=== PATIENT | female | born 1990 | race Hispanic/Latino ===

== ENCOUNTER 2018-09-06 07:31 | Observation (INO) | payer BC ==
[2018-09-06] MEDS ORDERED: CEFTRIAXONE/SWI 1gm 1 GM/10 ML SYR ONE (08:23)
[2018-09-06] MEDS ORDERED: NA CHLORIDE 0.9% 1,000 ML ONE ×4 (08:23→15:08)
[2018-09-06 08:29] LABS: Urine Blood 2+ (NEG); Urine Glucose NEGATIVE (NEG); Urine Protein NEGATIVE (NEG); Urine Specific Gravity 1.015 (1.005-1.030)
[2018-09-06 09:10] LABS: Urine Bacteria <20 /HPF (<20); Urine RBC <5 /HPF (NONE SEEN); Urine Yeast PRESENT (NONE SEEN)
[2018-09-06 09:10] LABS: BUN Blood Urea Nitrogen 9 mg/dL (7-18); Bicarbonate 27 mmol/L (21-32); Glucose Level 97 mg/dL (74-106); Potassium 3.7 mmol/L (3.5-5.1); Sodium Level 140 mmol/L (136-145)
[2018-09-06 09:11] LABS: Urine Culture Reflex Order REFLEXED
[2018-09-06 09:19] LABS: Absolute Lymphocytes (CBC) 0.6 K/uL (0.7-4.9); Absolute Monocytes 0.5 K/uL (0.1-1.3); Absolute Neutrophil 4.1 K/uL (1.8-8.0); Basophils % 0.5 % (0-1.3); Eosinophils % 0.1 % (0-4.4); Hematocrit 44.3 % (36.0-45.0); Lymphocytes % 11.9 % (15.3-44.8); MPV 9.2 fL (7.6-11.3); Monocytes % 9.9 % (3.3-12.3); RBC Red Blood Cell Count 4.95 M/uL (3.86-4.86)
--- NOTE | 2018-09-06 10:13 | RAD REPORT ---
EXAM DESCRIPTION: US - Renal Ultrasound-Limited - 09/06/2018 9:14 am CLINICAL HISTORY: Right flank pain COMPARISON: September 01 CAT scan FINDINGS: The right kidney measures 11 centimeters. Echotexture is borderline increased No gross abnormality of the bladder IMPRESSION: Borderline increased renal echotexture. This may be normal for the patient or indicate p arenchymal disease
--- NOTE | 2018-09-06 10:52 | EDPHYS ---
Physician Documentation [facility] Name: Bossman Cortez Age: 28 yrs Sex: Female : 1990 Arrival Date: 09/06/2018 Time: 07:34 Bed 7 Private MD: ED Physician Jeffry Lopez HPI: 09/06 12:17 This 28 yrs old Female presents to ER via Ambulatory with complaints of Kidney gs Problem. 12:17 The patient complains of pain in the left low back. The pain radiates to the right gs lower quadrant. Onset: The symptoms/episode began/occurred 5 day(s) ago. Associated signs and symptoms: Pertinent positives: vomiting, Pertinent negatives:. Severity of pain: At its worst the pain was severe in the emergency department the pain is unchanged. The patient has experienced similar episodes in the past, a few times. The patient has been recently seen by a physician: the patient's primary care provider. 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 - Social history:: Smoking status: Patient/guardian denies using tobacco. - Ebola Screening: : No symptoms or risks identified at this time. ROS: 12:17 All other systems are negative. gs Exam: 12:17 Head/Face: Normocephalic, atraumatic. Eyes: Pupils equal round and reactive to light, gs extra-ocular motions intact. Lids and lashes normal. Conjunctiva and sclera are non-icteric and not injected. Cornea within normal limits. Periorbital areas with no swelling, redness, or edema. ENT: Nares patent. No nasal discharge, no septal abnormalities noted. Tympanic membranes are normal and external auditory canals are clear. Oropharynx with no redness, swelling, or masses, exudates, or evidence of obstruction, uvula midline. Mucous membranes moist. Neck: Trachea midline, no thyromegaly or masses palpated, and no cervical lymphadenopathy. Supple, full range of motion without nuchal rigidity, or vertebral point tenderness. No Meningismus. Chest/axilla: Normal chest wall appearance and motion. Nontender with no deformity. No lesions are appreciated. Cardiovascular: Regular rate and rhythm with a normal S1 and S2. No gallops, murmurs, or rubs. Normal PMI, no JVD. No pulse deficits. Respiratory: Lungs have equal breath sounds bilaterally, clear to auscultation and percussion. No rales, rhonchi or wheezes noted. No increased work of breathing, no retractions or nasal flaring. Skin: Warm, dry with normal turgor. Normal color with no rashes, no lesions, and no evidence of cellulitis. MS/ Extremity: Pulses equal, no cyanosis. Neurovascular intact. Full, normal range of motion. Neuro: Awake and alert, GCS 15, oriented to person, place, time, and situation. Cranial nerves II-XII grossly intact. Motor strength 5/5 in all extremities. Sensory grossly intact. Cerebellar exam normal. Normal gait. 12:17 Constitutional: The patient appears alert, awake. 12:17 Abdomen/GI: Palpation: moderate abdominal tenderness, in the right lower quadrant. 12:17 Back: CVA tenderness, that is moderate, is noted on the right. Vital Signs: 07:51 BP 127 / 88; Pulse 134; Resp 16; Temp 98.7(TE); Pulse Ox 98% on R/A; Weight 72.57 kg; hb Height 5 ft. 5 in. (165.10 cm); Pain 8/10; 09:17 BP 103 / 70; Pulse 105; Resp 16; Pulse Ox 100% ; sv 10:42 BP 117 / 84; Pulse 102; Resp 18; Pulse Ox 98% ; sv 11:09 BP 117 / 75; Pulse 116; Resp 16; Pulse Ox 99% ; sv 11:45 BP 127 / 77; Pulse 108; Resp 16; Pulse Ox 97% on R/A; sv 12:30 BP 121 / 89; Pulse 103; Resp 16; Pulse Ox 97% ; sv 13:15 BP 120 / 82; Pulse 110; Resp 16; Pulse Ox 99% on R/A; sv 14:32 Pulse 100; Resp 18; Pulse Ox 97% ; sv 15:14 BP 110 / 79; Pulse 98; Resp 16; Pulse Ox 98% ; sv 16:16 BP 127 / 82; Pulse 109; Resp 16; Temp 98.6; Pulse Ox 98% ; sv 17:01 BP 103 / 67; Pulse 93; Resp 16; Pulse Ox 98% ; sv 07:51 Body Mass Index 26.63 (72.57 kg, 165.10 cm) hb MDM: 08:05 Patient medically screened. 12:17 Differential diagnosis: nephrolithiasis, pyelonephritis, UTI. Data reviewed: vital gs signs, nurses notes. Counseling: I had a detailed discussion with the patient and/or guardian regarding: the historical points, exam findings, and any diagnostic results supporting the discharge/admit diagnosis, the need for outpatient follow up. Response to treatment: the patient's symptoms have markedly improved after treatment, and as a result, I will discharge patient. 09/06 08:03 Order name: Urine Dipstick--Ancillary (enter results) ia 09/06 08:03 Order name: Urine --Ancillary (enter results); Complete Time: 10:50 ia 09/06 08:09 Order name: CBC with Diff 09/06 08:09 Order name: Basic Metabolic Panel; Complete Time: 10:50 09/06 08:09 Order name: Urine Microscopic Only; Complete Time: 10:50 09/06 08:09 Order name: Blood Culture* 09/06 08:09 Order name: Rp Exam Limited US; Complete Time: 10:50 09/06 08:09 Order name: CBC with Automated Diff; Complete Time: 10:50 EDNJ 09/06 09:12 Order name: Urine Culture EDNJ 09/06 11:00 Order name: CT Abd/Pelvis - Without Cont; Complete Time: 12:13 09/06 12:42 Order name: TSH; Complete Time: 13:39 09/06 12:49 Order name: Urine Drug Screen; Complete Time: 13:58 09/06 15:41 Order name: Flu ph 09/06 15:41 Order name: CDIFF ph 09/06 16:24 Order name: Heart Healthy; Complete Time: 16:35 EDMS Administered Medications: 08:54 Drug: NS 0.9% 1000 ml Route: IV; Rate: 1 bolus; Site: left antecubital; hb 09:30 Follow up: Response: No adverse reaction; IV Status: Completed infusion; IV Intake: sv 1000ml 09:15 Drug: Rocephin - (cefTRIAXone) 1 grams Route: IVPB; Infused Over: 30 mins; Site: left hb antecubital; 09:17 Follow up: Response: No adverse reaction; IV Status: Completed infusion; IV Intake: 10mlsv 11:09 Drug: NS 0.9% 1000 ml Route: IV; Rate: 1 bolus; Site: left antecubital; sv 12:00 Follow up: Response: No adverse reaction; IV Status: Completed infusion; IV Intake: sv 1000ml 12:48 Drug: NS 0.9% 1000 ml Route: IV; Rate: 1 bolus; Site: left antecubital; sv 14:00 Follow up: Response: No adverse reaction; IV Status: Completed infusion; IV Intake: sv 1000ml 14:23 Drug: TORadol - Ketorolac 15 mg Route: IVP; Site: left antecubital; sv 15:12 Follow up: Response: No adverse reaction; No change in condition sv 15:12 Drug: NS 0.9% 1000 ml Route: IV; Rate: 200 ml/hr; Site: left antecubital; sv 17:28 Follow up: Response: No adverse reaction; IV Status: Infusion continued upon admission sv Disposition: 09/06/18 14:52 Hospitalization ordered by Joanna Cope for Observation. Preliminary diagnosis are Vomiting, Dehydration. - Bed requested for Telemetry/MedSurg (observation). - Status is Observation. sv - Condition is Stable. - Problem is new. - Symptoms have improved. UTI on Admission? No Signatures: Dispatcher [employer] Seema Doss RN RN Clare Velez ms, Heather, RN RN Jeffry Lopez MD MD Corrections: (The following items were deleted from the chart) 11:00 10:51 09/06/2018 10:51 Discharged to Home. Impression: Dysuria. Condition is Stable. gs Forms are Medication Reconciliation Form, Thank You Letter, Antibiotic Education, Prescription Opioid Use. Follow up: Private Physician; When: 2 - 3 days; Reason: Re-evaluation by your physician. 12:42 12:23 09/06/2018 12:23 Discharged to Home. Impression: Nonspecific mesenteric gs lymphadenitis; Vomiting; Dehydration. Condition is Stable. Forms are Medication Reconciliation Form, Thank You Letter, Antibiotic Education, Prescription Opioid Use. Follow up: Private Physician; When: 1 - 2 days; Reason: Re-evaluation by your physician. 16:29 14:52 Hospitalization Ordered by Joanna Cope MD for Observation. Preliminary ms diagnosis is Vomiting; Dehydration. Bed requested for Telemetry/MedSurg (observation). Status is Observation. Condition is Stable. Problem is new. Symptoms have improved. UTI on Admission? No. gs 17:28 16:29 09/06/2018 14:52 Hospitalization Ordered by Joanna Cope MD for Observation. sv Preliminary diagnosis is Vomiting; Dehydration. Bed requested for Telemetry/MedSurg (observation). Status is Observation. Condition is Stable. Problem is new. Symptoms have improved. UTI on Admission? No. ms
--- NOTE | 2018-09-06 10:52 | ER ---
Nurse's Notes [facility] Name: Bossman Cortez Age: 28 yrs Sex: Female : 1990 Arrival Date: 09/06/2018 Time: 07:34 Bed 7 Private MD: Diagnosis: Vomiting;Dehydration Presentation: 09/06 07:53 Presenting complaint: Urinary frequency, burning with urination, and back pain x 1 hb week. Hx of urethral reflux and frequent UTIs, seen on Saturday by Dr. Encinas, started on Macrobid. Transition of care: patient was not received from another setting of care. Onset of symptoms was September 06, 2018. Risk Assessment: Do you want to hurt yourself or someone else? Patient reports no desire to harm self or others. Care prior to arrival: None. 07:53 Method Of Arrival: Ambulatory hb 07:53 Acuity: JHONY 3 hb 09:15 Initial Sepsis Screen: Does the patient meet any 2 criteria? HR > 90 bpm. No. Patient's sv initial sepsis screen is negative. Does the patient have a suspected source of infection? Yes: Dysuria/Frequency/Urgency/UTI. 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 - Social history:: Smoking status: Patient/guardian denies using tobacco. - Ebola Screening: : No symptoms or risks identified at this time. Screenin:44 Abuse screen: Denies threats or abuse. Denies injuries from another. Nutritional sv screening: No deficits noted. Tuberculosis screening: No symptoms or risk factors identified. Fall Risk None identified. Assessment: 09:00 General: Appears in no apparent distress. uncomfortable, well groomed, well developed, sv Behavior is calm, cooperative, appropriate for age. Pain: Complains of pain in back Pain currently is 8 out of 10 on a pain scale. Is continuous. Neuro: Level of Consciousness is awake, alert, obeys commands, Oriented to person, place, time, situation, Moves all extremities. Full function Gait is steady, Speech is normal. Respiratory: Airway is patent Respiratory effort is even, unlabored, Respiratory pattern is regular, symmetrical. : Reports burning with urination. Derm: Skin is pink, warm \T\ dry. 11:09 Reassessment: Patient appears in no apparent distress at this time. No changes from sv previously documented assessment. Patient and/or family updated on plan of care and expected duration. Pain level reassessed. Patient is alert, oriented x 3, equal unlabored respirations, skin warm/dry/pink. 12:48 Reassessment: Patient appears in no apparent distress at this time. No changes from sv previously documented assessment. Patient and/or family updated on plan of care and expected duration. Pain level reassessed. Patient is alert, oriented x 3, equal unlabored respirations, skin warm/dry/pink. 14:25 Reassessment: Patient appears in no apparent distress at this time. No changes from sv previously documented assessment. Patient and/or family updated on plan of care and expected duration. Pain level reassessed. Patient is alert, oriented x 3, equal unlabored respirations, skin warm/dry/pink. 15:12 Reassessment: Patient appears in no apparent distress at this time. Patient and/or sv family updated on plan of care and expected duration. Pain level reassessed. Patient is alert, oriented x 3, equal unlabored respirations, skin warm/dry/pink. 15:29 Reassessment: Dr Cope at the bedside. sv 16:16 Reassessment: Patient appears in no apparent distress at this time. Patient and/or sv family updated on plan of care and expected duration. Pain level reassessed. Patient is alert, oriented x 3, equal unlabored respirations, skin warm/dry/pink. 16:34 Reassessment: Attempted to call report, nurse to call back for report. sv Vital Signs: 07:51 BP 127 / 88; Pulse 134; Resp 16; Temp 98.7(TE); Pulse Ox 98% on R/A; Weight 72.57 kg; hb Height 5 ft. 5 in. (165.10 cm); Pain 8/10; 09:17 BP 103 / 70; Pulse 105; Resp 16; Pulse Ox 100% ; sv 10:42 BP 117 / 84; Pulse 102; Resp 18; Pulse Ox 98% ; sv 11:09 BP 117 / 75; Pulse 116; Resp 16; Pulse Ox 99% ; sv 11:45 BP 127 / 77; Pulse 108; Resp 16; Pulse Ox 97% on R/A; sv 12:30 BP 121 / 89; Pulse 103; Resp 16; Pulse Ox 97% ; sv 13:15 BP 120 / 82; Pulse 110; Resp 16; Pulse Ox 99% on R/A; sv 14:32 Pulse 100; Resp 18; Pulse Ox 97% ; sv 15:14 BP 110 / 79; Pulse 98; Resp 16; Pulse Ox 98% ; sv 16:16 BP 127 / 82; Pulse 109; Resp 16; Temp 98.6; Pulse Ox 98% ; sv 17:01 BP 103 / 67; Pulse 93; Resp 16; Pulse Ox 98% ; sv 07:51 Body Mass Index 26.63 (72.57 kg, 165.10 cm) hb ED Course: 07:34 Patient arrived in ED. tw3 07:40 Jeffry Lopez MD is Attending Physician. gs 07:44 Patient has correct armband on for positive identification. Bed in low position. Call sv light in reach. Door closed. Head of bed elevated. 07:45 Seema Gottlieb RN is Primary Nurse. sv 07:50 Awaiting ED provider evaluation. sv 07:55 Triage completed. hb 07:56 Arm band placed on. hb 08:45 First set of blood cultures drawn by me. Inserted saline lock: 20 gauge in left hb antecubital area, using aseptic technique. Blood collected. 09:06 Second set of blood cultures drawn by me. hb 09:12 CBC with Diff Sent. sv 09:14 Rp Exam Limited US In Process Unspecified. EDMS 09:15 Ultrasound completed. Patient tolerated well. sg3 11:[address] via wheelchair. mw3 11:16 CT completed. Patient tolerated procedure well. Patient moved back from CT. mw3 11:18 CT Abd/Pelvis - Without Cont In Process Unspecified. EDMS 14:51 Joanna Cope MD is Hospitalizing Provider. gs 16:19 Flu and/or RSV swab sent to lab. dh3 17:11 No provider procedures requiring assistance completed. Patient admitted, IV remains in sv place. intact. 18:01 Primary Nurse role handed off by Seema Gottlieb RN Administered Medications: 08:54 Drug: NS 0.9% 1000 ml Route: IV; Rate: 1 bolus; Site: left antecubital; hb 09:30 Follow up: Response: No adverse reaction; IV Status: Completed infusion; IV Intake: sv 1000ml 09:15 Drug: Rocephin - (cefTRIAXone) 1 grams Route: IVPB; Infused Over: 30 mins; Site: left hb antecubital; 09:17 Follow up: Response: No adverse reaction; IV Status: Completed infusion; IV Intake: 10mlsv 11:09 Drug: NS 0.9% 1000 ml Route: IV; Rate: 1 bolus; Site: left antecubital; sv 12:00 Follow up: Response: No adverse reaction; IV Status: Completed infusion; IV Intake: sv 1000ml 12:48 Drug: NS 0.9% 1000 ml Route: IV; Rate: 1 bolus; Site: left antecubital; sv 14:00 Follow up: Response: No adverse reaction; IV Status: Completed infusion; IV Intake: sv 1000ml 14:23 Drug: TORadol - Ketorolac 15 mg Route: IVP; Site: left antecubital; sv 15:12 Follow up: Response: No adverse reaction; No change in condition sv 15:12 Drug: NS 0.9% 1000 ml Route: IV; Rate: 200 ml/hr; Site: left antecubital; sv 17:28 Follow up: Response: No adverse reaction; IV Status: Infusion continued upon admission sv Intake: 09:17 IV: 10ml; Total: 10ml. sv 09:30 IV: 1000ml; Total: 1010ml. sv 12:00 IV: 1000ml; Total: 2010ml. sv 14:00 IV: 1000ml; Total: 3010ml. sv Outcome: 10:51 Discharge ordered by MD. gs 12:23 Discharge ordered by MD. gs 14:52 Decision to Hospitalize by Provider. gs 17:10 Admitted to Med/surg accompanied by tech, via wheelchair, room 212, with chart, Report sv called to Cari RAZA 17:10 Condition: stable 17:10 Instructed on the need for admit. 17:28 Patient left the ED. sv Signatures: [facility] Seema Gottlieb RN RN Shani Villegas RN RN elbert Zapata, Kandis tw3 Yolanda Hollingsworth 3 Jeffry Lopez MD MD gs Godinez, Sarah 3 Lida Mccray 3 Corrections: (The following items were deleted from the chart) 08:54 08:45 Inserted saline lock: 20 gauge in right antecubital area, using aseptic hb technique. Blood collected. hb 16:19 16:16 BP 127 / 82; Pulse 109bpm; Resp 16bpm; Pulse Ox 98%; sv sv
--- NOTE | 2018-09-06 11:51 | RAD REPORT ---
EXAM DESCRIPTION: CT - Abdomen Pelvis Wo Contrast - 09/06/2018 11:18 am CLINICAL HISTORY: Abdominal pain urinary frequency COMPARISON: September 01, 2018 TECHNIQUE: Computed axial tomography of the abdomen and pelvis was obtained. IV and oral contrast we re not requested. All CT scans are performed using dose optimization technique as appropriate and may include automated exposure control or mA/KV adjustment according to patient size. FINDINGS: The evaluation of solid organs, vessels and bowel is limited secondary to the lack of con trast administration. Fatty liver The Spleen, pancreas, adrenals and kidneys appear grossly normal. The appendix is normal. There is no evidence of diverticulitis. Small umbilical hernia. Cholecystectomy Multiple small mesenteric lymph nodes IMPRESSION: Multiple small mesenteric lymph nodes probably reactive. Followup CT in 3 months is dyan mmended to assess stability.
[2018-09-06 13:43] LABS: Barbiturates NEGATIVE (NEGATIVE); Benzodiazepines NEGATIVE (NEGATIVE); Cocaine NEGATIVE (NEGATIVE); METHAMPHETAM NEGATIVE (NEGATIVE); Methadone NEGATIVE (NEGATIVE); Opiates NEGATIVE (NEGATIVE); Phencyclidine NEGATIVE (NEGATIVE); THC Cannibis NEGATIVE (NEGATIVE)
[2018-09-06] MEDS ORDERED: KETOROLAC 30 MG/ML INJ ONE (14:32)
[2018-09-06] MEDS ORDERED: ACETAMINOPHEN 500 MG TAB PO PRN (16:12)
[2018-09-06] MEDS: ONDANSETRON 4 MG/2 ML VIAL IV PRN (18:24)
[2018-09-06] MEDS: NA CHLORIDE 0.9% 1,000 ML IV SCH (18:24)
[2018-09-06] MEDS: KETOROLAC 30 MG/ML INJ IV PRN (18:26)
--- NOTE | 2018-09-06 19:15 | P.HP ---
Certification for Inpatient Patient admitted to: Observation Practitioner: I am a practitioner with admitting privileges, knowledge of patient current condition, hospital course, and medical plan of care. Services: Services provided to patient in accordance with Admission requirements found in Title 42 Section 412.3 of the Code of Federal Regulations Patient History Date of Service: 09/06/18 Reason for admission: back pain ,nausea and vomiting History of Present Illness: 28 y/o woman with a history of hypertension ,recurrent UTI,urethral reflex , depression presented to the emergency room with back pain ,nasuea and vomting that started 1 week ago and pt went to her pcp who prescribed macrobid, pt didnt improve and continued to have burning with urination with back pain and went to see her pcp again on last Saturday and got prescritopn for another abx but pt didnt take it,last night pt started to have generalized body ache and fever 103 with worsening of N/V and back pain ,in ER pt was having tachycardia and decision was made to admit her for observation Allergies No Known Drug Allergies Allergy (Verified 09/06/18 18:19) Unknown No Known Allergies Allergy (Uncoded 06/15/16 18:02) Unknown Home Medications: Nifedipine [Procardia Xl] 30 mg PO DAILY 09/06/18 Quetiapine Fumarate [Seroquel] 50 mg PO DAILY 09/06/18 - Past Medical/Surgical History Has patient received pneumonia vaccine in the past: No Diabetic: No -: urethreal reflux -: hypertension -: frequent uti -: vaginal delivery 12/2015 -: tubal 03/2018 - Family History Father -: Hypertension - Social History Smoking Status: Never smoker Alcohol use: No CD- Drugs: No Caffeine use: No Place of Residence: Home Review of Systems 10-point ROS is otherwise unremarkable Physical Examination - Vital Signs Temperature: 97.8 F Blood Pressure: 109/71 Pulse: 85 Respirations: 18 Pulse Ox (%): 98 - Physical Exam General: Alert, In no apparent distress, Oriented x3 HEENT: Atraumatic, Normocephalic, PERRLA Neck: JVD not distended Respiratory: Clear to auscultation bilaterally, Normal air movement Cardiovascular: No edema, Normal pulses, Regular rate/rhythm, Normal S1 S2 Gastrointestinal: Normal bowel sounds, Soft and benign, Non-distended Musculoskeletal: No clubbing, No swelling, No erythema, No tenderness Integumentary: No rashes, No breakdown, No significant lesion Neurological: Normal speech, Normal strength at 5/5 x4 extr, Sensation intact, Cranial nerves 3-12 intact - Studies Laboratory Data (last 24 hrs) 09/06/18 08:45: Sodium 140, Potassium 3.7, BUN 9, Creatinine 0.69, Glucose 97 09/06/18 08:45: WBC 5.3, Hgb 15.2 H, Hct 44.3, Plt Count 245 Microbiology Data (last 24 hrs): 09/06/18 16:17 Nasopharnyx Influenza Type A Antigen Screen - Final 09/06/18 16:17 Nasopharnyx Influenza Type B Antigen Screen - Final Assessment and Plan - Plan nausea and vomiting with back pain and +ve cva tenderness ,UA -ve will start on IV Rocephin IVF hydration zofran advance diet as tolerated f/up stool studies to r/o cdiff since pt has hx of recent abx use HTn continue home meds of procardia 30 depression continue serequel dvt ppx - Advance Directives Does patient have a Living Will: No Does patient have a Durable POA for Healthcare: No
[2018-09-06] MEDS ORDERED: CEFTRIAXONE 1 GM/NS 50 ML 1 GM/50 ML BAG IV SCH (21:00)
[2018-09-06 21:44] LABS: Urine Appearance CLOUDY; Urine Bilirubin NEGATIVE (NEG); Urine Blood 3+ (NEG); Urine Color YELLOW; Urine Glucose NEGATIVE (NEG); Urine Protein NEGATIVE (NEG); Urine Specific Gravity <=1.005 (1.005-1.030); Urine Urobilinogen 0.2 mg/dL (0.2-1.0); Urine pH 6.5 (5.0-7.0)
[2018-09-06 21:56] LABS: Urine Microscopic Reflex ORDER UMIC
[2018-09-06 22:05] LABS: Urine RBC <5 /HPF (NONE SEEN)
[2018-09-06 22:06] LABS: Urine Bacteria 20-50 /HPF (<20); Urine Culture Reflex Order NOT NEEDED
[2018-09-06] MEDS ORDERED: CEFTRIAXONE 1000 MG/VIAL ONE (22:21)
[2018-09-06] MEDS ORDERED: NA CHLORIDE 0.9% 50 ML ONE (22:23)
[2018-09-07] MEDS: NA CHLORIDE 0.9% 1,000 ML IV SCH (05:06)
[2018-09-07 06:29] LABS: Absolute Lymphocytes (CBC) 1.3 K/uL (0.7-4.9); Absolute Monocytes 0.6 K/uL (0.1-1.3); Absolute Neutrophil 1.1 K/uL (1.8-8.0); Basophils % 0.7 % (0-1.3); Eosinophils % 2.2 % (0-4.4); Hematocrit 37.9 % (36.0-45.0); Lymphocytes % 43.1 % (15.3-44.8); MPV 9.3 fL (7.6-11.3); Monocytes % 18.9 % (3.3-12.3); RBC Red Blood Cell Count 4.18 M/uL (3.86-4.86)
[2018-09-07 06:52] LABS: ALT/SGPT 25 U/L (12-78); AST/SGOT 21 U/L (15-37); Alkaline Phosphatase 42 U/L (45-117); BUN Blood Urea Nitrogen 6 mg/dL (7-18); Bicarbonate 25 mmol/L (21-32); Bilirubin Total 0.2 mg/dL (0.2-1.0); Glucose Level 82 mg/dL (74-106); Potassium 3.5 mmol/L (3.5-5.1); Protein, Total 6.2 g/dL (6.4-8.2); Sodium Level 144 mmol/L (136-145)
[2018-09-07 07:06] LABS: Magnesium 2.1 mg/dL (1.8-2.4); Phosphorus 2.2 mg/dL (2.5-4.9)
[2018-09-07 07:46] LABS: Blood Morphology Comment NOT SEEN (NOT SEEN); Platelet Estimate ADEQ
[2018-09-07] MEDS: ONDANSETRON 4 MG/2 ML VIAL IV PRN (08:36)
[2018-09-07] MEDS: KETOROLAC 30 MG/ML INJ IV PRN (08:43)
[2018-09-07] MEDS ORDERED: NIFEDIPINE XL 30 MG TABLET PO SCH (09:00)
[2018-09-07] MEDS ORDERED: POTASSIUM PHOS IN 0.9 % NACL 15 MMOL/250 ML BAG IV ONE (09:00)
[2018-09-07] MEDS ORDERED: ENOXAPARIN 40 MG/0.4 ML SQ SCH (09:00)
[2018-09-07] MEDS ORDERED: CEFTRIAXONE/SWI 1gm 1 GM/10 ML SYR IVP SCH (09:00)
[2018-09-07] MEDS ORDERED: QUETIAPINE 25 MG TAB PO SCH (09:00)
--- NOTE | 2018-09-08 06:45 | P.DS ---
Admission Date: 09/06/18 Discharge Date: 09/07/18 Discharge Condition: FAIR Reason for Admission: back pain ,nausea and vomiting Brief History of Present Illness: 28 y/o woman with a history of hypertension ,recurrent UTI,urethral reflex , depression presented to the emergency room with back pain ,nasuea and vomting that started 1 week ago and pt went to her pcp who prescribed macrobid, pt didnt improve and continued to have burning with urination with back pain and went to see her pcp again on last Saturday and got prescritopn for another abx but pt didnt take it,last night pt started to have generalized body ache and fever 103 with worsening of N/V and back pain ,in ER pt was having tachycardia and decision was made to admit her for observation Hospital Course: pt wasadmitted for n/v and diarrhea ,with hx of recurrent UTI,pt recived one dose of rocephin ,UA normal on the second day of admission ,pt denied any BM since yesterday,no vomiting and was able to eat oatmeal without vomiting pt was hemodynimically stable for dc prescription given for zofran Vital Signs/Physical Exam: Temp Pulse Resp BP Pulse Ox 97.4 F 70 16 112/68 100 09/07/18 08:00 09/07/18 08:37 09/07/18 08:00 09/07/18 08:37 09/07/18 08:00 General: Alert, In no apparent distress, Oriented x3 HEENT: Atraumatic, Normocephalic, PERRLA Neck: Supple Respiratory: Clear to auscultation bilaterally, Normal air movement Cardiovascular: No edema, Regular rate/rhythm, Normal S1 S2 Gastrointestinal: Normal bowel sounds, Soft and benign, Non-distended, No tenderness Musculoskeletal: No clubbing, No swelling, No erythema, No tenderness Integumentary: No rashes Neurological: Normal speech, Normal strength at 5/5 x4 extr, Sensation intact Laboratory Data at Discharge: WBC 3.1 K/uL (4.3-10.9) L D 09/07/18 05:28 Hgb 12.8 g/dL (12.0-15.0) 09/07/18 05:28 Hct 37.9 % (36.0-45.0) 09/07/18 05:28 Plt Count 192 K/uL (152-406) D 09/07/18 05:28 Sodium 144 mmol/L (136-145) 09/07/18 05:28 Potassium 3.5 mmol/L (3.5-5.1) 09/07/18 05:28 BUN 6 mg/dL (7-18) L 09/07/18 05:28 Creatinine 0.47 mg/dL (0.55-1.3) L 09/07/18 05:28 Glucose 82 mg/dL (74-106) 09/07/18 05:28 Phosphorus 2.2 mg/dL (2.5-4.9) L 09/07/18 05:28 Magnesium 2.1 mg/dL (1.8-2.4) 09/07/18 05:28 Total Bilirubin 0.2 mg/dL (0.2-1.0) 09/07/18 05:28 AST 21 U/L (15-37) 09/07/18 05:28 ALT 25 U/L (12-78) 09/07/18 05:28 Alkaline Phosphatase 42 U/L (45-117) L 09/07/18 05:28 Home Medications: Nifedipine [Procardia Xl] 30 mg PO DAILY 09/06/18 Quetiapine Fumarate [Seroquel] 50 mg PO DAILY 09/06/18 Ondansetron HCl [Zofran] 4 mg PO Q8H #15 tablet 09/07/18 Tamsulosin HCl 0.4 mg PO BID 09/07/18 New Medications: Ondansetron HCl [Zofran] 4 mg PO Q8H #15 tablet Patient Discharge Instructions: f/up with PCP for continuation of care. diet low sodium. activity as tolerated Diet: Low sodium Activity: Ad artemio Followup: Vin Encinas MD [Primary Care Provider] -
== END 2018-09-07 12:09 | disposition home or self-care (01) ==
LOC: ER 07:31 → 2ND 17:12
PROVIDERS: ADMIT Internal Medicine; ATTEND Internal Medicine
DX: M54.5 Low back pain (principal); E86.0 Dehydration; R11.2 Nausea with vomiting, unspecified; R19.7 Diarrhea, unspecified; I10 Essential (primary) hypertension; F32.9 Major depressive disorder, single episode, unspecified; Q63.9 Congenital malformation of kidney, unspecified; Q62.7 Congenital vesico-uretero-renal reflux; K76.0 Fatty (change of) liver, not elsewhere classified; K42.9 Umbilical hernia without obstruction or gangrene; Z79.899 Other long term (current) drug therapy; Z87.440 Personal history of urinary (tract) infections
CPT/HCPCS: 36415; 74176; 76775; 80048; 80053; 80307; 81003; 81015; 81025; 83735; 84100; 84443; 85025; 87040; 87086; 87088; 87804; 96361; 96365; 96367; 96374; 96375; 99285; G0378; J0696; J1650; J2405; J7030

== ENCOUNTER 2018-09-07 19:30 | Emergency (ER) | payer BC ==
[2018-09-07 20:41] LABS: Urine Blood 1+ (NEG); Urine Glucose NEGATIVE (NEG); Urine Protein NEGATIVE (NEG)
[2018-09-07 20:54] LABS: Absolute Lymphocytes (CBC) 0.8 K/uL (0.7-4.9); Absolute Monocytes 0.4 K/uL (0.1-1.3); Absolute Neutrophil 3.6 K/uL (1.8-8.0); Basophils % 0.4 % (0-1.3); Eosinophils % 1.3 % (0-4.4); Hematocrit 44.9 % (36.0-45.0); Lymphocytes % 15.7 % (15.3-44.8); MPV 8.9 fL (7.6-11.3); Monocytes % 7.8 % (3.3-12.3); RBC Red Blood Cell Count 4.97 M/uL (3.86-4.86)
[2018-09-07] MEDS ORDERED: ONDANSETRON 4 MG/2 ML VIAL ONE (20:55)
[2018-09-07 21:11] LABS: ALT/SGPT 35 U/L (12-78); AST/SGOT 27 U/L (15-37); Alkaline Phosphatase 63 U/L (45-117); BUN Blood Urea Nitrogen 9 mg/dL (7-18); Bicarbonate 26 mmol/L (21-32); Bilirubin Direct < 0.1 mg/dL (0-0.2); Bilirubin Total 0.3 mg/dL (0.2-1.0); Glucose Level 94 mg/dL (74-106); Lipase 128 U/L (73-393); Potassium 3.3 mmol/L (3.5-5.1); Protein, Total 8.3 g/dL (6.4-8.2); Sodium Level 139 mmol/L (136-145)
[2018-09-07] MEDS ORDERED: IBUPROFEN 400 MG TAB ONE (21:54)
[2018-09-07] MEDS ORDERED: IBUPROFEN 200 MG TAB PO ONE (21:55)
--- NOTE | 2018-09-08 00:25 | ER ---
Nurse's Notes [facility] Name: Bossman Cortez Age: 28 yrs Sex: Female : 1990 Arrival Date: 09/07/2018 Time: 19:31 Bed 23 Private MD: Diagnosis: Generalized abdominal pain;Nausea and vomiting;Diarrhea, unspecified Presentation: 09/07 20:11 Presenting complaint: Patient states: was admitted to hospital for kidney infection, iw unable to keep anything down, was tachycardic, was d/c today after lunch, started having vomiting and diarrhea this afternoon, pt also c/o right flank pain, temp was 103 at home, took Tylenol at 1800 and Zofran at 1800. Transition of care: patient was not received from another setting of care. Onset of symptoms was September 07, 2018. Risk Assessment: Do you want to hurt yourself or someone else? Patient reports no desire to harm self or others. Initial Sepsis Screen: Does the patient meet any 2 criteria? HR > 90 bpm. Does the patient have a suspected source of infection?. Care prior to arrival: None. 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 - Social history:: Smoking status: Patient/guardian denies using tobacco. - Ebola Screening: : Patient negative for fever greater than or equal to 101.5 degrees Fahrenheit, and additional compatible Ebola Virus Disease symptoms Patient denies exposure to infectious person Patient denies travel to an Ebola-affected area in the 21 days before illness onset No symptoms or risks identified at this time. Screenin:27 Abuse screen: Denies threats or abuse. Nutritional screening: No deficits noted. la1 Tuberculosis screening: No symptoms or risk factors identified. Fall Risk None identified. Assessment: 20:26 General: Appears in no apparent distress. Behavior is calm, cooperative. Pain: la1 Complains of pain in abdomen. Neuro: Level of Consciousness is awake, alert, obeys commands, Oriented to person, place, time, situation. Cardiovascular: Capillary refill < 3 seconds Patient's skin is warm and dry. Respiratory: Airway is patent Respiratory effort is even, unlabored, Respiratory pattern is regular, symmetrical. GI: Abdomen is round non-distended, Bowel sounds present X 4 quads. Abd is soft and non tender X 4 quads. Reports diarrhea, nausea, vomiting. : No signs and/or symptoms were reported regarding the genitourinary system. 21:59 Reassessment: Patient appears in no apparent distress at this time. No changes from la1 previously documented assessment. Patient and/or family updated on plan of care and expected duration. Pain level reassessed. Patient is alert, oriented x 3, equal unlabored respirations, skin warm/dry/pink. 23:00 Reassessment: Patient appears in no apparent distress at this time. No changes from la1 previously documented assessment. Patient and/or family updated on plan of care and expected duration. Pain level reassessed. Patient is alert, oriented x 3, equal unlabored respirations, skin warm/dry/pink. 09/08 00:05 Reassessment: Patient appears in no apparent distress at this time. No changes from la1 previously documented assessment. Patient and/or family updated on plan of care and expected duration. Pain level reassessed. Patient is alert, oriented x 3, equal unlabored respirations, skin warm/dry/pink. 00:37 Reassessment: Patient appears in no apparent distress at this time. No changes from la1 previously documented assessment. Patient and/or family updated on plan of care and expected duration. Pain level reassessed. Patient is alert, oriented x 3, equal unlabored respirations, skin warm/dry/pink. Vital Signs: 09/07 20:14 BP 128 / 92; Pulse 117; Resp 16 S; Temp 99.3(TE); Pulse Ox 100% on R/A; Weight 76.2 kg; iw Height 5 ft. 2 in. (157.48 cm); Pain 6/10; 21:57 BP 117 / 74; Pulse 110; Resp 16; Temp 101.7; Pulse Ox 100% on R/A; la1 09/08 00:08 BP 97 / 76; Pulse 98; Resp 16; Temp 98.9(O); Pulse Ox 100% on R/A; la1 00:37 BP 117 / 66; Pulse 87; Resp 16; Pulse Ox 98% on R/A; la1 09/07 20:14 Body Mass Index 30.73 (76.20 kg, 157.48 cm) iw ED Course: 09/07 19:31 Patient arrived in ED. es 20:13 Triage completed. iw 20:16 Arm band placed on. iw 20:23 Gela Graham FNP-C is PHCP. kb 20:23 Pancho Gutierrez MD is Attending Physician. kb 20:26 Delvis Lee, LUZ MARINA is Primary Nurse. la1 20:27 Bed in low position. Call light in reach. la1 20:36 Inserted saline lock: 20 gauge in left antecubital area, using aseptic technique. Blood la1 collected. 23:45 CT Abd/Pelvis - W/Contrast In Process Unspecified. EDMS 09/08 00:37 No provider procedures requiring assistance completed. IV discontinued, intact, la1 bleeding controlled, No redness/swelling at site. Pressure dressing applied. Administered Medications: 09/07 20:44 Drug: NS 0.9% 1000 ml Route: IV; Rate: 1000 ml; Site: left antecubital; rv 21:58 Follow up: IV Status: Completed infusion la1 20:44 Drug: Zofran 4 mg Route: IVP; Site: left antecubital; rv 21:58 Follow up: Response: No adverse reaction; Nausea is decreased la1 21:58 Drug: Motrin 600 mg Route: PO; la1 09/08 00:37 Follow up: Response: No adverse reaction; Temperature is decreased la1 00:37 Drug: Potassium Chloride 20 mEq Route: PO; la1 Outcome: 00:24 Discharge ordered by . kb 00:37 Discharged to home ambulatory. la1 00:37 Condition: stable 00:37 Discharge instructions given to patient, Instructed on discharge instructions, follow up and referral plans. Demonstrated understanding of instructions, follow-up care. 00:37 Patient left the ED. la1 Signatures: Dispatcher [employer] EDGela Slaughter, CAP AND STUD MACHINE OPERATOR-C CAP AND STUD MACHINE OPERATOR-Ckb Kena Rabago Irene RN LUZ MARINA iw Delvis Lee RN RN laAmbrose Finch RN RN rv Corrections: (The following items were deleted from the chart) 09/07 20:16 20:11 Presenting complaint: Patient states: was admitted to hospital for kidney iw infection, unable to keep anything down, was tachycardic, was d/c today after lunch, started having vomiting and diarrhea this afternoon iw
--- NOTE | 2018-09-08 00:26 | EDPHYS ---
Physician Documentation [facility] Name: Bossman Cortez Age: 28 yrs Sex: Female : 1990 Arrival Date: 09/07/2018 Time: 19:31 Bed 23 Private MD: ED Physician Pancho Gutierrez HPI: 09/07 20:36 This 28 yrs old Female presents to ER via Ambulatory with complaints of kb Diarrhea, UTI. 20:36 The patient presents to the emergency department with nausea, vomiting, diarrhea. kb Onset: The symptoms/episode began/occurred last week. Possible causes: unknown. The symptoms are aggravated by nothing. The symptoms are alleviated by nothing. Associated signs and symptoms: Pertinent positives: diarrhea, nausea, vomiting. Severity of symptoms: At their worst the symptoms were moderate in the emergency department the symptoms are unchanged. The patient has not experienced similar symptoms in the past. The patient has been recently been admitted at [facility], was discharged earlier today. Pt reports she was started on antibiotics for UTI by PCP on Saturday. CAme here yesterday for flank pain, n/v/d, and unable to tolerate medications. Admitted yesterday, discharged at 1300 today because she was feeling better and tolerating PO. At 1600, pt began having vomiting and diarrhea again. Temp of 103. 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 - Social history:: Smoking status: Patient/guardian denies using tobacco. - Ebola Screening: : Patient negative for fever greater than or equal to 101.5 degrees Fahrenheit, and additional compatible Ebola Virus Disease symptoms Patient denies exposure to infectious person Patient denies travel to an Ebola-affected area in the 21 days before illness onset No symptoms or risks identified at this time. ROS: 20:36 ENT: Negative for injury, pain, and discharge, Neck: Negative for injury, pain, and kb swelling, Cardiovascular: Negative for chest pain, palpitations, and edema, Respiratory: Negative for shortness of breath, cough, wheezing, and pleuritic chest pain, Back: Negative for injury and pain, MS/Extremity: Negative for injury and deformity, Skin: Negative for injury, rash, and discoloration, Neuro: Negative for headache, weakness, numbness, tingling, and seizure. 20:36 Constitutional: Positive for fever, Negative for body aches, chills, fatigue, malaise, poor PO intake, weight loss. 20:36 Abdomen/GI: Positive for abdominal pain, nausea, vomiting, and diarrhea, Negative for constipation, abdominal cramps, abdominal distension, anorexia. Exam: 20:36 Constitutional: This is a well developed, well nourished patient who is awake, alert, kb and in no acute distress. Head/Face: Normocephalic, atraumatic. ENT: Nares patent. No nasal discharge, no septal abnormalities noted. Tympanic membranes are normal and external auditory canals are clear. Oropharynx with no redness, swelling, or masses, exudates, or evidence of obstruction, uvula midline. Mucous membranes moist. Neck: Trachea midline, no thyromegaly or masses palpated, and no cervical lymphadenopathy. Supple, full range of motion without nuchal rigidity, or vertebral point tenderness. No Meningismus. Chest/axilla: Normal chest wall appearance and motion. Nontender with no deformity. No lesions are appreciated. Cardiovascular: Regular rate and rhythm with a normal S1 and S2. No gallops, murmurs, or rubs. Normal PMI, no JVD. No pulse deficits. Respiratory: Lungs have equal breath sounds bilaterally, clear to auscultation and percussion. No rales, rhonchi or wheezes noted. No increased work of breathing, no retractions or nasal flaring. Skin: Warm, dry with normal turgor. Normal color with no rashes, no lesions, and no evidence of cellulitis. MS/ Extremity: Pulses equal, no cyanosis. Neurovascular intact. Full, normal range of motion. Neuro: Awake and alert, GCS 15, oriented to person, place, time, and situation. Cranial nerves II-XII grossly intact. Motor strength 5/5 in all extremities. Sensory grossly intact. Cerebellar exam normal. Normal gait. 20:36 Abdomen/GI: Inspection: abdomen appears normal, Bowel sounds: normal, in all quadrants, Palpation: soft, in all quadrants, moderate abdominal tenderness. Vital Signs: 20:14 BP 128 / 92; Pulse 117; Resp 16 S; Temp 99.3(TE); Pulse Ox 100% on R/A; Weight 76.2 kg; iw Height 5 ft. 2 in. (157.48 cm); Pain 6/10; 21:57 BP 117 / 74; Pulse 110; Resp 16; Temp 101.7; Pulse Ox 100% on R/A; la1 09/08 00:08 BP 97 / 76; Pulse 98; Resp 16; Temp 98.9(O); Pulse Ox 100% on R/A; la1 00:37 BP 117 / 66; Pulse 87; Resp 16; Pulse Ox 98% on R/A; la1 09/07 20:14 Body Mass Index 30.73 (76.20 kg, 157.48 cm) iw MDM: 09/07 20:24 Patient medically screened. kb 20:39 Data reviewed: vital signs, nurses notes. Data interpreted: Pulse oximetry: on room air kb is 100 %. Interpretation: normal. 09/08 00:22 Counseling: I had a detailed discussion with the patient and/or guardian regarding: the kb historical points, exam findings, and any diagnostic results supporting the discharge/admit diagnosis, lab results, radiology results, the need for outpatient follow up, a family practitioner, to return to the emergency department if symptoms worsen or persist or if there are any questions or concerns that arise at home. 09/07 20:28 Order name: Urine Dipstick--Ancillary (enter results); Complete Time: 20:44 ar5 09/07 20:28 Order name: Urine --Ancillary (enter results); Complete Time: 20:44 ar5 09/07 20:35 Order name: Basic Metabolic Panel; Complete Time: 21:18 kb 09/07 20:35 Order name: CBC with Diff; Complete Time: 21:09 kb 09/07 20:35 Order name: Hepatic Function; Complete Time: 21:18 kb 09/07 20:35 Order name: Lipase; Complete Time: 21:18 kb 09/07 20:35 Order name: IV Saline Lock; Complete Time: 20:35 kb 09/07 20:35 Order name: Labs collected and sent; Complete Time: 20:35 kb 09/07 21:10 Order name: CT Abd/Pelvis - W/Contrast kb Administered Medications: 09/07 20:44 Drug: NS 0.9% 1000 ml Route: IV; Rate: 1000 ml; Site: left antecubital; rv 21:58 Follow up: IV Status: Completed infusion la1 20:44 Drug: Zofran 4 mg Route: IVP; Site: left antecubital; rv 21:58 Follow up: Response: No adverse reaction; Nausea is decreased la1 21:58 Drug: Motrin 600 mg Route: PO; la1 09/08 00:37 Follow up: Response: No adverse reaction; Temperature is decreased la1 00:37 Drug: Potassium Chloride 20 mEq Route: PO; la1 Disposition: 06:54 Co-signature as Attending Physician, Pancho Gutierrez MD I agree with the assessment and 4 plan of care. Disposition: 09/08/18 00:24 Discharged to Home. Impression: Generalized abdominal pain, Nausea and vomiting, Diarrhea, unspecified. - Condition is Stable. - Discharge Instructions: Viral Gastroenteritis, Adult, [id number]. - Medication Reconciliation Form, Thank You Letter, Antibiotic Education, Prescription Opioid Use form. - Follow up: Emergency Department; When: As needed; Reason: Worsening of condition. Follow up: Private Physician; When: 2 - 3 days; Reason: Recheck today's complaints, Continuance of care, Re-evaluation by your physician. Signatures: Dispatcher [employer] Gela Hancock, BOBBIN COLLECTOR-C BOBBIN COLLECTOR-Ckb Estee Wu, RN RN Delvis Calhoun RN Pancho Lora MD MD 4 Ambrose Sewell RN RN rv Corrections: (The following items were deleted from the chart) 09/07 21:11 20:36 Abdomen/GI: Inspection: abdomen appears normal, Bowel sounds: normal, in all kb quadrants, Palpation: soft, in all quadrants, mild abdominal tenderness, in the right lower quadrant, kb 09/08 00:37 00:24 09/08/2018 00:24 Discharged to Home. Impression: Generalized abdominal pain; la1 Nausea and vomiting; Diarrhea, unspecified. Condition is Stable. Forms are Medication Reconciliation Form, Thank You Letter, Antibiotic Education, Prescription Opioid Use. Follow up: Emergency Department; When: As needed; Reason: Worsening of condition. Follow up: Private Physician; When: 2 - 3 days; Reason: Recheck today's complaints, Continuance of care, Re-evaluation by your physician. kb
[2018-09-08] MEDS ORDERED: POTASSIUM CL SA 10 MEQ TAB PO ONE (00:43)
--- NOTE | 2018-09-08 11:53 | RAD REPORT ---
EXAM DESCRIPTION: CT - Abdomen Pelvis W Contrast - 09/07/2018 11:44 pm ADDENDUM #1 ADDENDUM: Addendum dictated after coronal and sagittal reconstructions were made available for review. IMPRESSION: No acute abdominal or pelvic abnormality. Please refer to original report for additional details. Electronically signed by: Thong Maria Luisasky CERDA 09/08/2018 12:24 AM CDT End of Addendum EXAM DESCRIPTION: CT Abdomen and Pelvis With Intravenous Contrast CLINICAL HISTORY: The patient is 28 years old and is Female; ABD PAIN TECHNIQUE: Axial computed tomography images of the abdomen and pelvis with intravenous contrast. T his CT exam was performed using one or more of the following dose reduction techniques: automated e xposure control, adjustment of the mA and/or kV according to patient size, and/or use of iterative re construction technique. Oral contrast was administered. Delayed imaging was performed. COMPARISON: CT head without contrast dated 09/01/2018. FINDINGS: Limited evaluation due to absence of coronal and sagittal reconstruction secondary to mach ine malfunction. LUNG BASES: Unremarkable. No mass. No consolidation. ABDOMEN: LIVER: Unremarkable. No mass. GALLBLADDER AND BILE DUCTS: Unremarkable. No calcified stones. No ductal dilation. PANCREAS: Unremarkable. No mass. No ductal dilation. SPLEEN: Unremarkable. No splenomegaly. ADRENALS: Unremarkable. No mass. KIDNEYS AND URETERS: 7 mm right renal cyst. No hydronephrosis. STOMACH AND BOWEL: Enteric contrast throughout the small bowel. Large bowel is not opacified. No mucosal thickening. PELVIS: APPENDIX: The appendix is seen and is within normal limits. BLADDER: Unremarkable. No mass. REPRODUCTIVE: Suggestion of multiple peripherally oriented subcentimeter cyst in the right ovary ( series 4, image 75). Similar-appearing finding involving the left ovary (series 4, image 65). Small amount of endometrial fluid. ABDOMEN and PELVIS: INTRAPERITONEAL SPACE: Small amount of free pelvic fluid. No free air. BONES/JOINTS: No acute fracture. No dislocation. SOFT TISSUES: Fat-containing umbilical hernia. VASCULATURE: Unremarkable. No abdominal aortic aneurysm. LYMPH NODES: Unremarkable. No enlarged lymph nodes. IMPRESSION: 1. No acute abdominal or pelvic abnormality. 2. Suggestion of peripherally located subcentimeter ovarian cysts bilaterally which may be due to n ormal follicles or polycystic ovarian syndrome. Dedicated pelvic ultrasound may be of diagnostic use. Electronically signed by: Thong Hicks DO 09/08/2018 12:14 AM CDT Due to temporary technical issues with the PACS/Fluency reporting system, reports are being signed by the in house radiologist as a courtesy to ensure prompt reporting. The interpreting radiologist is f ully responsible for the content of the report.
== END 2018-09-08 00:37 | disposition home or self-care (01) ==
LOC: ER 19:30
DX: R19.7 Diarrhea, unspecified (principal); R11.2 Nausea with vomiting, unspecified; I10 Essential (primary) hypertension
CPT/HCPCS: 36415; 74177; 80048; 80076; 81003; 81025; 83690; 85025; 96361; 96374; 99284; J2405; Q9967

== ENCOUNTER 2020-06-20 14:51 | Observation (INO) | payer BC ==
--- OUTSIDE RECORDS SUMMARY | 2020-06-20 14:54 | XMS REPORT | Continuity of Care Document ---
:[address] [facility] t Address [address] [place] [address] [address]. [address] [place] [address] Care Team Providers Name Role Phone DR HALLEY Attending Clinician Unavailable DR HALLEY Admitting Clinician Unavailable Problems This patient has no known problems. Allergies, Adverse Reactions, Alerts This patient has no known allergies or adverse reactions. Medications This patient has no known medications. Procedures This patient has no known procedures. Encounters Start End Encounter Admission Attending Care Care Encounter Source Date/Time Date/Time Type Type Clinicians Facility Department ID 2020-06-02 2020-06-02 Outpatient ANAHI [facility] [id number] 04:16:00 06:45:00 [facility] Results This patient has no known results.
[2020-06-20] MEDS ORDERED: NA CHLORIDE 0.9% 1,000 ML ONE (15:49)
[2020-06-20 16:05] LABS: Absolute Lymphocytes (CBC) 1.2 K/uL (0.7-4.9); Basophils % 0.4 % (0-1.3); Hematocrit 43.9 % (36.0-45.0); Lymphocytes % 25.6 % (15.3-44.8); MPV 8.9 fL (7.6-11.3); RBC Red Blood Cell Count 4.96 M/uL (3.86-4.86)
[2020-06-20 16:09] LABS: BUN Blood Urea Nitrogen 7 mg/dL (7-18); Bicarbonate 26 mmol/L (21-32); Glucose Level 95 mg/dL (74-106); Potassium 3.4 mmol/L (3.5-5.1); Sodium Level 137 mmol/L (136-145)
[2020-06-20 16:11] LABS: Urine Blood TRACE (NEG); Urine Glucose NEGATIVE (NEG); Urine Protein NEGATIVE (NEG); Urine Specific Gravity 1.015 (1.005-1.030)
[2020-06-20 16:11] LABS: Urine Bacteria <20 /HPF (<20)
--- NOTE | 2020-06-20 16:20 | RAD REPORT ---
EXAM DESCRIPTION: CTAbdomen Pelvis W Contrast - 06/20/2020 4:00 pm CLINICAL HISTORY: Abdominal pain. fever, possible pyelonephritis COMPARISON: Abdomen Pelvis W Contrast dated 09/07/2018 TECHNIQUE: Biphasic CT imaging of the abdomen and pelvis was performed with 100 ml non-ionic IV cont rast. All CT scans are performed using dose optimization technique as appropriate and may include automated exposure control or mA/KV adjustment according to patient size. FINDINGS: The lung bases are clear. The liver is diffusely fatty. Spleen, pancreas, adrenal glands and kidneys are within normal limits. No bowel obstruction, free air, free fluid or abscess. The appendix is normal. No evidence of signi ficant lymphadenopathy. No suspicious bony findings. IMPRESSION: No acute intra-abdominal or pelvic finding. Fatty liver.
--- NOTE | 2020-06-20 17:11 | EDPHYS ---
Physician Documentation [facility] Name: Bossman Cortez Age: 30 yrs Sex: Female : 1990 Arrival Date: 06/20/2020 Time: 14:56 Bed 17 Private MD: ED Physician Galo Womack HPI: 06/20 15:20 This 30 yrs old Female presents to ER via Ambulatory with complaints of sent rn by dr-kidney infection. 15:20 The patient reports fever, that was measured at 102 degrees Fahrenheit. Onset: The rn symptoms/episode began/occurred 4 day(s) ago. Modifying factors: there are no obvious modifying factors. Associated signs and symptoms: Pertinent positives: chills, decreased appetite, Pertinent negatives: abdominal pain, cough, diarrhea, skin rash, shortness of breath, vomiting. Severity of symptoms: At their worst the symptoms were moderate in the emergency department the symptoms are unchanged. The patient has experienced similar episodes in the past. 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 No cough/sob. Reports drinking a lot of water. + decreased appetite. . RCIS: 15:08 LMP N/A - Irregular menses ca1 Historical: - Allergies: 15:08 No Known Allergies; ca1 - Home Meds: 15:08 Vyvanse 30 mg Oral cap once daily [Active]; Lo Loestrin Fe 1 mg-10 mcg (24)/10 mcg (2) ca1 oral tab 1 tab once daily [Active]; metoprolol succinate 25 mg oral Tb24 1 tab once daily [Active]; - PMHx: 15:08 congential kidney defect; Hypertension; urethral reflux; ca1 - PSHx: 15:08 foot surgery; Tubal ligation; ca1 - Immunization history:: Flu vaccine is up to date. - Social history:: Smoking status: Patient denies any tobacco usage or history of. - Family history:: not pertinent. - Hospitalizations: : No recent hospitalization is reported. 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 Exam: 15:20 Constitutional: This is a well developed, well nourished patient who is awake, alert, rn and in no acute distress. Ambulatory to room without difficulty or assistance. Head/Face: Normocephalic, atraumatic. Eyes: Periorbital areas with no swelling, redness, or edema. Cardiovascular: Tachycardic, regular. No pulse deficits. Respiratory: No increased work of breathing, no retractions or nasal flaring. Abdomen/GI: soft, non-tender Skin: Warm, dry MS/ Extremity: Pulses equal, no cyanosis. Neuro: Awake and alert, GCS 15, oriented to person, place, time, and situation. Vital Signs: 15:03 BP 127 / 86; Pulse 120; Resp 18 S; Temp 98.8(TE); Pulse Ox 98% ; Weight 81.19 kg (R); ca1 Height 5 ft. 4 in. (162.56 cm) (R); Pain 8/10; 16:49 BP 119 / 86; Pulse 116; Resp 17 S; Pulse Ox 98% on R/A; jd3 18:16 Pulse 102; Resp 16 S; Pulse Ox 97% on R/A; jd3 15:03 Body Mass Index 30.72 (81.19 kg, 162.56 cm) ca1 MDM: 15:09 Patient medically screened. rn 17:08 Differential diagnosis: viral Infection, bacterial infection, UTI. Data reviewed: vital rn signs, nurses notes, lab test result(s), radiologic studies, CT scan, and as a result, I will admit patient. Counseling: I had a detailed discussion with the patient and/or guardian regarding: the historical points, exam findings, and any diagnostic results supporting the discharge/admit diagnosis, lab results, radiology results, the need for further work-up and treatment in the hospital. Response to treatment: the patient's symptoms have mildly improved after treatment, and as a result, I will admit patient. Admission orders: after a detailed discussion of the patient's condition and case, the admit orders are written by me. ED course: Consulted with Dr. Encinas after results, states clinic UA showed WBC and leukocytes, tests here neg UA and neg CT abdomen. Dr. Encinas requests observation overnight as has gone south before and recurrent UTIs in past. Will admit to Dr. Forrest. . 06/20 15:19 Order name: CBC with Diff rn 06/20 15:19 Order name: Basic Metabolic Panel rn 06/20 15:19 Order name: Urine Culture rn 06/20 15:19 Order name: Urine Microscopic Only; Complete Time: 16:22 rn 06/20 15:19 Order name: Procalcitonin; Complete Time: 16:41 rn 06/20 15:19 Order name: Lactate; Complete Time: 16:22 06/20 15:19 Order name: Blood Culture Adult (2) rn 06/20 15:19 Order name: CBC with Automated Diff; Complete Time: 16:22 [facility] 06/20 15:19 Order name: Basic Metabolic Panel; Complete Time: 16:22 [facility] 06/20 15:19 Order name: Urine Culture [facility] 06/20 16:07 Order name: Urine Dipstick--Ancillary (enter results) [facility] 06/20 16:07 Order name: Urine --Ancillary (enter results) [facility] 06/20 16:08 Order name: Urine Dipstick-Ancillary; Complete Time: 16:22 [facility] 06/20 16:08 Order name: Urine --Ancillary; Complete Time: 16:22 [facility] 06/20 15:19 Order name: IV Start; Complete Time: 15:52 rn 06/20 15:19 Order name: Urine Test (obtain specimen); Complete Time: 16:50 rn 06/20 15:19 Order name: Urine Dipstick-Ancillary (obtain specimen); Complete Time: 16:50 rn 06/20 15:19 Order name: CT Abd/Pelvis - IV Contrast Only; Complete Time: 16:22 rn 06/20 16:41 Order name: COVID-19 : Document "Date of Symptom Onset" if Symptomatic. rn 06/20 16:41 Order name: Flu rn 06/20 18:40 Order name: COVID-19/FLU A+B EDMS Administered Medications: 16:14 Drug: NS 0.9% 1000 ml Route: IV; Rate: 1000 ml; Site: left antecubital; jd3 17:10 Follow up: Response: No adverse reaction; IV Status: Completed infusion; IV Intake: jd3 1000ml 17:34 Drug: Rocephin 1 grams Route: IV; Rate: calculated rate; Site: left antecubital; jd3 18:30 Follow up: Response: No adverse reaction; IV Status: Completed infusion; IV Intake: [id number] Disposition: 06/20/20 17:11 Hospitalization ordered by Chip Forrest for Observation. Preliminary diagnosis are Fever, unspecified, Urinary tract infection, site not specified. - Bed requested for Telemetry/MedSurg (observation). - Status is Observation. ll2 - Condition is Stable. - Problem is new. - Symptoms have improved. Signatures: Dispatcher [employer] EDMS Clarita Monzon RN RN dw Nieto, Roman, MD MD rn Davies, Jonathon, RN RN jd3 Acob, Cheryl RN Guerda Dong RN RN ll2 Corrections: (The following items were deleted from the chart) 19:33 17:11 Hospitalization Ordered by Chip Forrest DO for Observation. Preliminary dw diagnosis is Fever, unspecified; Urinary tract infection, site not specified. Bed requested for Telemetry/MedSurg (observation). Status is Observation. Condition is Stable. Problem is new. Symptoms have improved. rn 20:08 19:33 06/20/2020 17:11 Hospitalization Ordered by Chip Forrest DO for Observation. ll2 Preliminary diagnosis is Fever, unspecified; Urinary tract infection, site not specified. Bed requested for Telemetry/MedSurg (observation). Status is Observation. Condition is Stable. Problem is new. Symptoms have improved. dw
--- NOTE | 2020-06-20 17:11 | ER ---
Nurse's Notes 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 ca1 Symptoms started [place], fever 102.9 last night. Had check up with the teacher ballet today. HX of frequent kidney infection due to urethral reflux. reports R lower back pain. Coronavirus screen: Client denies travel out of the [place] in the last 14 days. fever, Client presents with at least one sign or symptom that may indicate coronavirus-19. Standard/surgical mask placed on the client. Provider contacted for isolation considerations. Ebola Screen: Patient negative for fever greater than or equal to 101.5 degrees Fahrenheit, and additional compatible Ebola Virus Disease symptoms Patient denies exposure to infectious person. Patient denies travel to an Ebola-affected area in the 21 days before illness onset. No symptoms or risks identified at this time. Initial Sepsis Screen: Does the patient meet any 2 criteria? No. Patient's initial sepsis screen is negative. Does the patient have a suspected source of infection? No. Patient's initial sepsis screen is negative. Risk Assessment: Do you want to hurt yourself or someone else? Patient reports no desire to harm self or others. Onset of symptoms was June 20, 2020. 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 - Social history:: Smoking status: Patient denies any tobacco usage or history of. - Family history:: not pertinent. - Hospitalizations: : No recent hospitalization is reported. Screenin:38 Abuse screen: Denies threats or abuse. Nutritional screening: No deficits noted. jd3 Tuberculosis screening: No symptoms or risk factors identified. Fall Risk Ambulatory Aid- None/Bed Rest/Nurse Assist (0 pts). Gait- Normal/Bed Rest/Wheelchair (0 pts) Mental Status- Oriented to own ability (0 pts). Total Johnson Fall Scale indicates No Risk (0-24 pts). Assessment: 15:37 General: Appears in no apparent distress. comfortable, Behavior is calm, cooperative, jd3 appropriate for age. Pain: Complains of pain in right flank Quality of pain is described as sharp. Neuro: Level of Consciousness is awake, alert, obeys commands, Oriented to person, place, time, situation. Cardiovascular: Denies chest pain, Capillary refill < 3 seconds Patient's skin is warm and dry. Respiratory: Airway is patent Respiratory effort is even, unlabored, Respiratory pattern is regular, symmetrical, Denies cough, shortness of breath. GI: No signs and/or symptoms were reported involving the gastrointestinal system. Patient currently denies abdominal pain, constipation, diarrhea, nausea, vomiting. : Reports UTI. EENT: No signs and/or symptoms were reported regarding the EENT system. Derm: Skin is intact, Skin is dry, Skin is normal, Skin temperature is warm. Musculoskeletal: Circulation, motion, and sensation intact. Range of motion: intact in all extremities. 16:49 Reassessment: Patient appears in no apparent distress at this time. No changes from jd3 previously documented assessment. Patient and/or family updated on plan of care and expected duration. Pain level reassessed. Patient is alert, oriented x 3, equal unlabored respirations, skin warm/dry/pink. 18:15 Reassessment: Patient appears in no apparent distress at this time. Patient and/or jd3 family updated on plan of care and expected duration. Pain level reassessed. Patient is alert, oriented x 3, equal unlabored respirations, skin warm/dry/pink. awaiting admission. 20:07 Reassessment: Patient and/or family updated on plan of care and expected duration. Pain ll2 level reassessed. Patient is alert, oriented x 3, equal unlabored respirations, skin warm/dry/pink. report called to LUZ MARINA Felder. Vital Signs: 15:03 BP 127 / 86; Pulse 120; Resp 18 S; Temp 98.8(TE); Pulse Ox 98% ; Weight 81.19 kg (R); ca1 Height 5 ft. 4 in. (162.56 cm) (R); Pain 8/10; 16:49 BP 119 / 86; Pulse 116; Resp 17 S; Pulse Ox 98% on R/A; jd3 18:16 Pulse 102; Resp 16 S; Pulse Ox 97% on R/A; jd3 15:03 Body Mass Index 30.72 (81.19 kg, 162.56 cm) ca1 ED Course: 14:56 Patient arrived in ED. as 15:06 Triage completed. ca1 15:08 Arm band placed on right wrist. ca1 15:09 Galo Womack MD is Attending Physician. rn 15:30 Rodriguez Paul RN is Primary Nurse. jd3 15:39 Patient has correct armband on for positive identification. Bed in low position. Call jd3 light in reach. Side rails up X 1. Pulse ox on. NIBP on. 15:52 Inserted saline lock: 20 gauge in left antecubital area, using aseptic technique. Blood dh4 collected. 16:00 CT Abd/Pelvis - IV Contrast Only In Process Unspecified. EDMS 17:10 Chip Forrest DO is Hospitalizing Provider. rn 19:07 Primary Nurse role handed off by Rodriguez Paul, LUZ MARINA tt3 19:13 No provider procedures requiring assistance completed. Patient admitted, IV remains in jd3 place. Administered Medications: 16:14 Drug: NS 0.9% 1000 ml Route: IV; Rate: 1000 ml; Site: left antecubital; jd3 17:10 Follow up: Response: No adverse reaction; IV Status: Completed infusion; IV Intake: jd3 1000ml 17:34 Drug: Rocephin 1 grams Route: IV; Rate: calculated rate; Site: left antecubital; jd3 18:30 Follow up: Response: No adverse reaction; IV Status: Completed infusion; IV Intake: [id number] Intake: 17:10 IV: 1000ml; Total: 1000ml. jd3 18:30 IV: 10ml; Total: 1010ml. jd3 Outcome: 17:11 Decision to Hospitalize by Provider. rn 20:07 Admitted to Med/surg accompanied by tech, via wheelchair, Report called to Bradford alejandra 20:07 Condition: stable 20:07 Instructed on the need for admit. 20:08 Patient left the ED. justyn Signatures: Dispatcher [employer] Carli Martinez Roman, MD MD rn Davies, Jonathon, RN RN jd3 Keli Mari RN RN ca1 Huhn, Donald 4 Guerda Duckworth RN RN ll2 Sherif Moseley tt3
--- NOTE | 2020-06-20 17:30 | P.HP ---
Certification for Inpatient Patient admitted to: Observation With expected LOS: <2 Midnights Patient will require the following post-hospital care: None Practitioner: I am a practitioner with admitting privileges, knowledge of patient current condition, hospital course, and medical plan of care. Services: Services provided to patient in accordance with Admission requirements found in Title 42 Section 412.3 of the Code of Federal Regulations Patient History Date of Service: 06/20/20 Primary Care Provider: Dr. Aranda Reason for admission: Dysuria, flank pain History of Present Illness: 30-year-old old female with history of hypertension and urethral reflux with recurrent UTI. Patient was seen by her PCP earlier today. Patient had symptoms of dysuria, flank pain, and fever over the weekend. Patient with history of urethral reflux with recurrent UTI. Lab showed abnormal UTI at the office. The patient was sent for further evaluation. Patient denies any cough, congestion, shortness of breath or chest pain. In the ER patient was evaluated. White count within normal range with white count of 4.8, hemoglobin 14.7. Pro calcitonin negative. Lactic acid normal. test negative. Urinalysis showed no leukocytes or nitrites. CT unremarkable for any significant abnormalities. BMP unremarkable. Patient was admitted for observation. When I saw the patient ER, patient appeared comfortable. Patient had been given IV antibiotic therapy and IV fluid bolus in the emergency room. Allergies No Known Drug Allergies Allergy (Verified 09/06/18 18:19) Unknown Home medications list reviewed: Yes Home Medications: Nifedipine [Procardia Xl] 30 mg PO DAILY 09/06/18 Quetiapine Fumarate [Seroquel] 50 mg PO DAILY 09/06/18 Ondansetron HCl [Zofran] 4 mg PO Q8H #15 tablet 09/07/18 Tamsulosin HCl 0.4 mg PO BID 09/07/18 - Past Medical/Surgical History Diabetic: No -: Urethral reflux with recurrent UTI -: Hypertension -: Adult attention deficit disorder -: vaginal delivery 12/2015 -: tubal 03/2018 Psychosocial/ Personal History: Patient is . She has 3 children. - Family History Father -: Hypertension - Social History Smoking Status: Never smoker Alcohol use: Yes CD- Drugs: No Caffeine use: No Place of Residence: Home Review of Systems General: As per HPI Eyes: Unremarkable ENT: Unremarkable Respiratory: Unremarkable Cardiovascular: Unremarkable Gastrointestinal: As per HPI Genitourinary: Dysuria, Frequency, As per HPI Musculoskeletal: Unremarkable Integumentary: Unremarkable Neurological: Unremarkable Lymphatics: Unremarkable Physical Examination - Physical Exam General: Alert, In no apparent distress, Oriented x3, Cooperative HEENT: Atraumatic, Normocephalic, PERRLA, Mucous membr. moist/pink Neck: Supple, No Thyromegaly Respiratory: Clear to auscultation bilaterally, Normal air movement Cardiovascular: Normal pulses, Regular rate/rhythm Gastrointestinal: Normal bowel sounds, Soft and benign, Non-distended, No masses, No rebound, No guarding, Tenderness (Minimal pain to the right flank) Musculoskeletal: No erythema, No tenderness, No warmth Integumentary: No tenderness/swelling, No erythema, No warmth, No cyanosis Neurological: Normal speech, Normal strength at 5/5 x4 extr, Normal tone, Normal affect - Studies Laboratory Data (last 24 hrs) 06/20/20 15:43: Sodium 137, Potassium 3.4 L, BUN 7, Creatinine 0.61, Glucose 95 06/20/20 15:43: WBC 4.80, Hgb 14.7, Hct 43.9, Plt Count 242 Assessment and Plan - Plan Impression: Dysuria, fever secondary to UTI with history of urethral reflux and recurrent UTI Hypertension Plan: Patient will be admitted for further evaluation and treatment. Patient given IV fluid bolus in the emergency room. Will continue with IV fluids. Continue IV Rocephin at this time. Blood, urine cultures obtained. Will provide medication for pain. Restart home medication of metoprolol. DVT prophylaxis in place. Anticipate improvement over the next 24 hr. Likely discharge in the morning. Will discuss with her PCP. Discharge Plan: Home Plan to discharge in: 24 Hours - Advance Directives Does patient have a Living Will: No Does patient have a Durable POA for Healthcare: No - Code Status/Comfort Care Code Status Assessed: Yes (Patient is full code) Time Spent Managing Pts Care (In Minutes): 55
[2020-06-20] MEDS ORDERED: CEFTRIAXONE/SWI 1gm 1 GM/10 ML SYR ONE (17:46)
[2020-06-20 18:40] LABS: SARS-COV-2 RT PCR POSITIVE (NEGATIVE)
[2020-06-20] MEDS ORDERED: NA CHLORIDE 0.9% 1,000 ML IV SCH (21:03)
[2020-06-20] MEDS ORDERED: HYDROCODONE/APAP 7.5/325 MG TAB PO PRN (21:03)
[2020-06-20] MEDS ORDERED: ACETAMINOPHEN 500 MG TAB PO PRN (21:03)
[2020-06-20] MEDS ORDERED: TRAMADOL HCL 50 MG TAB PO PRN (21:03)
[2020-06-20] MEDS ORDERED: ONDANSETRON 4 MG/2 ML VIAL IV PRN (21:03)
[2020-06-21 00:33] VITALS: BMI 4329.8
[2020-06-21 02:18] VITALS: O2SAT 97
[2020-06-21 03:56] LABS: Absolute Lymphocytes (CBC) 1.7 K/uL (0.7-4.9); Basophils % 0.4 % (0-1.3); Hematocrit 38.1 % (36.0-45.0); Lymphocytes % 41.3 % (15.3-44.8); MPV 9.2 fL (7.6-11.3); RBC Red Blood Cell Count 4.28 M/uL (3.86-4.86)
[2020-06-21 04:09] LABS: BUN Blood Urea Nitrogen 6 mg/dL (7-18); Bicarbonate 27 mmol/L (21-32); Glucose Level 93 mg/dL (74-106); Magnesium 2.2 mg/dL (1.8-2.4); Potassium 3.6 mmol/L (3.5-5.1); Sodium Level 140 mmol/L (136-145)
[2020-06-21] MEDS ORDERED: METOPROLOL XL 25 MG TAB PO SCH (06:00)
--- NOTE | 2020-06-21 07:37 | P.DS ---
Admission Date: 06/20/20 Discharge Date: 06/21/20 Primary Care Provider: Dr. Aranda Disposition: ROUTINE DISCHARGE Discharge Condition: GOOD Reason for Admission: Dysuria, flank pain Consultations: none Procedures: COVID: Positive Influenza: Negative CT scan: FINDINGS: The lung bases are clear. The liver is diffusely fatty. Spleen, pancreas, adrenal glands and kidneys are within normal limits. No bowel obstruction, free air, free fluid or abscess. The appendix is normal. No evidence of significant lymphadenopathy. No suspicious bony findings. IMPRESSION: No acute intra-abdominal or pelvic finding. Fatty liver. Medical Problem List: Dysuria, fever secondary to UTI with history of urethral reflux and recurrent UTI COVID [address] Scan showing Fatty liver Brief History of Present Illness: 30-year-old old female with history of hypertension and urethral reflux with recurrent UTI. Patient was seen by her PCP earlier today. Patient had symptoms of dysuria, flank pain, and fever over the weekend. Patient with history of urethral reflux with recurrent UTI. Lab showed abnormal UTI at the office. The patient was sent for further evaluation. Patient denies any cough, congestion, shortness of breath or chest pain. In the ER patient was evaluated. White count within normal range with white count of 4.8, hemoglobin 14.7. Pro calcitonin negative. Lactic acid normal. test negative. Urinalysis showed no leukocytes or nitrites. CT unremarkable for any significant abnormalities. BMP unremarkable. Patient was admitted for observation. When I saw the patient ER, patient appeared comfortable. Patient had been given IV antibiotic therapy and IV fluid bolus in the emergency room. Hospital Course: Patient presented with dysuria and flank pain. Patient with history of urethral reflux and prior UTI. CT scan unremarkable. Patient was admitted for observation. Patient was given IV Rocephin with improvement. Patient was also found to be positive for COVID 19. Patient did not have any significant respiratory issues. Oxygen saturations remained within normal range. CT scan did not reveal any infiltrates. Patient has done well Overnite. Prior urine culture reviewed. At discharge the patient will continue with Bactrim DS 1 pill twice daily for 5 days. Recommend to increase fluid intake. Education on UTI prevention will be provided. Recommend follow up with her PCP in 1 week to follow up this hospitalization. For her positive COVID 19 status, patient is asymptomatic. At discharge will recommend to continue vitamin supplementation for inflammation. This includes a vitamin-C 500 mg 3 times a day, vitamin-D 2000 units daily, thiamine 100 mg 1 pill twice daily, melatonin 5 mg at bedtime and zinc 220 mg daily. Patient will continue with CDC guidelines on COVID 19 education and isolation. Patient will need to isolate at home for at least 10 days. Patient will continue with face mask use, hand washing and social distancing. Patient with history of hypertension. This has remained stable. At discharge patient will continue with Toprol-XL 25 mg daily. Patient with history of attention deficit disorder. Patient may continue with Vyvanse as directed. CT scan also revealed fatty liver. Education on fatty liver will be provided. This can be further addressed by her PCP as an outpatient. Vital Signs/Physical Exam: Temp Pulse Resp BP Pulse Ox 98.7 F 81 18 109/66 98 06/21/20 04:00 06/21/20 06:05 06/21/20 04:00 06/21/20 06:05 06/21/20 04:00 General: Alert, In no apparent distress, Oriented x3, Cooperative HEENT: Atraumatic Neck: Supple Respiratory: Clear to auscultation bilaterally Cardiovascular: Normal pulses, Regular rate/rhythm Gastrointestinal: Normal bowel sounds, Soft and benign, Non-distended, No tenderness, No masses, No rebound, No guarding Musculoskeletal: No erythema, No tenderness, No warmth Integumentary: No tenderness/swelling, No erythema, No warmth, No cyanosis Neurological: Normal speech, Normal strength at 5/5 x4 extr, Normal tone, Normal affect Laboratory Data at Discharge: WBC 4.10 K/uL (4.3-10.9) L D 06/21/20 03:13 Hgb 12.8 g/dL (12.0-15.0) 06/21/20 03:13 Hct 38.1 % (36.0-45.0) 06/21/20 03:13 Plt Count 210 K/uL (152-406) 06/21/20 03:13 Sodium 140 mmol/L (136-145) 06/21/20 03:13 Potassium 3.6 mmol/L (3.5-5.1) 06/21/20 03:13 BUN 6 mg/dL (7-18) L 06/21/20 03:13 Creatinine 0.54 mg/dL (0.55-1.3) L 06/21/20 03:13 Glucose 93 mg/dL (74-106) 06/21/20 03:13 Magnesium 2.2 mg/dL (1.8-2.4) 06/21/20 03:13 Home Medications: Ascorbic Acid [Vitamin C] 500 mg PO TID #90 tablet.er 06/21/20 Cholecalciferol (Vitamin D3) [Vitamin D 1000 Iu Tab] 2,000 unit PO DAILY #60 tab 06/21/20 Lisdexamfetamine Dimesylate [Vyvanse] 50 mg PO DAILY 06/21/20 Melatonin 5 mg PO BEDTIME #30 tablet 06/21/20 Metoprolol Succinate [Toprol Xl*] 25 mg PO DAILY 06/21/20 Sulfamethoxazole/Trimethoprim [Bactrim Ds Tablet] 1 each PO BID #10 tablet 06/21/20 Thiamine HCl 100 mg PO BID #60 tablet 06/21/20 Zinc Sulfate [Zinc Sulfate*] 220 mg PO DAILY #30 cap 06/21/20 New Medications: Sulfamethoxazole/Trimethoprim [Bactrim Ds Tablet] 1 each PO BID #10 tablet Melatonin 5 mg PO BEDTIME #30 tablet Thiamine HCl 100 mg PO BID #60 tablet Ascorbic Acid [Vitamin C] 500 mg PO TID #90 tablet.er Cholecalciferol (Vitamin D3) [Vitamin D 1000 Iu Tab] 2,000 unit PO DAILY #60 tab Zinc Sulfate [Zinc Sulfate*] 220 mg PO DAILY #30 cap Physician Discharge Instructions: Patient presented with dysuria and flank pain. Patient with history of urethral reflux and prior UTI. CT scan unremarkable. Patient was admitted for observation. Patient was given IV Rocephin with improvement. Patient was also found to be positive for COVID 19. Patient did not have any significant respiratory issues. Oxygen saturations remained within normal range. CT scan did not reveal any infiltrates. Patient has done well Overnite. Prior urine culture reviewed. At discharge the patient will continue with Bactrim DS 1 pill twice daily for 5 days. Recommend to increase fluid intake. Education on UTI prevention will be provided. Recommend follow up with her PCP in 1 week to follow up this hospitalization. For her positive COVID 19 status, patient is asymptomatic. At discharge will recommend to continue vitamin supplementation for inflammation. This includes a vitamin-C 500 mg 3 times a day, vitamin-D 2000 units daily, thiamine 100 mg 1 pill twice daily, melatonin 5 mg at bedtime and zinc 220 mg daily. Patient will continue with CDC guidelines on COVID 19 education and isolation. Patient will need to isolate at home for at least 10 days. Patient will continue with face mask use, hand washing and social distancing. Patient with history of hypertension. This has remained stable. At discharge patient will continue with Toprol-XL 25 mg daily. Patient with history of attention deficit disorder. Patient may continue with Vyvanse as directed. CT scan also revealed fatty liver. Education on fatty liver will be provided. This can be further addressed by her PCP as an outpatient. Diet: AHA Activity: Ad artemio Followup: Gutierrez Ramirez FNP [Primary Care Provider] - Time spent managing pt's care (in minutes): 55
[2020-06-21] MEDS ORDERED: ENOXAPARIN 40 MG/0.4 ML SQ SCH (09:00)
[2020-06-21] MEDS ORDERED: CEFTRIAXONE/SWI 1gm 1 GM/10 ML SYR IV SCH (09:00)
[2020-06-21] MEDS ORDERED: CEFTRIAXONE 1 GM/NS 50 ML 1 GM/50 ML BAG IV SCH (09:00)
[2020-06-21 09:10] VITALS: BP 120/84; TEMP 98.8
== END 2020-06-21 10:34 | disposition home or self-care (01) ==
LOC: ER 14:51 → ERHOLD 17:20 → 4TH 19:47
PROVIDERS: ADMIT Family Medicine; ATTEND Family Medicine
DX: U07.1 COVID-19 (principal); N39.0 Urinary tract infection, site not specified; K76.0 Fatty (change of) liver, not elsewhere classified; I10 Essential (primary) hypertension; F98.8 Other specified behavioral and emotional disorders with onset usually occurring in childhood and adolescence
CPT/HCPCS: 0240U; 36415; 74177; 80048; 81003; 81015; 81025; 82565; 83605; 83735; 84145; 85025; 87040; 87086; 87088; 96361; 96365; 99285; G0378; J0696; J1650; J7030; Q9967